=== PATIENT | female | born 1975 | race Caucasian/White ===

== ENCOUNTER 2016-03-17 08:04 | Emergency (ER) | payer MEDICARE, OTHER ==
[~2016-03-17] VITALS: Ht 167.6 cm; Wt 90.0 kg
[~2016-03-17 08:04] MED LIST: CLON-352 PO; CLON.5 PO; GLUCTAB PO; KEPP1000 PO; MOBI15TA PO; PROP20TA3 PO; TOPI200 PO
[2016-03-17 08:10] VITALS: BP 146/85; PULSE 77; RESP 16; TEMP 97.9; O2SAT 98
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
[2016-03-17 08:41] LABS: AUTOMATED NEUTROPHIL # 4.4 TH/MM3 (1.8-7.7); BASOPHIL % 0.4 % (0.0-2.0); HEMATOCRIT 40.1 % (35.0-46.0); HEMO FLAGS DIFF FINAL; LYMPH % 23.6 % (9.0-44.0); LYMPHOCYTE # 1.5 TH/MM3 (1.0-4.8); MEAN CELL VOLUME 83.9 FL (80.0-100.0); MEAN CORPUSCULAR HEMOGLOBIN 27.9 PG (27.0-34.0); MEAN CORPUSCULAR HGB CONC 33.3 % (32.0-36.0); MONO % 5.9 % (0.0-8.0); NEUT % 70.1 % (16.0-70.0); PLATELET COUNT 193 TH/MM3 (150-450); RED BLOOD COUNT 4.78 MIL/MM3 (4.00-5.30); RED CELL DISTRIBUTION WIDTH 13.8 % (11.6-17.2); WHITE BLOOD COUNT 6.2 TH/MM3 (4.0-11.0)
[2016-03-17 08:53] LABS: ANION GAP 8 MEQ/L (5-15); BICARBONATE 23.5 MEQ/L (21.0-32.0); BLOOD UREA NITROGEN 9 MG/DL (7-18); CHLORIDE 110 MEQ/L (98-107); GLOMERULAR FILTRATION RATE 93 ML/MIN (>89); POTASSIUM 4.1 MEQ/L (3.5-5.1); SODIUM (NA) 141 MEQ/L (136-145)
[2016-03-17 11:55] LABS: AMPHETAMINE, URINE NEG (NEG); BARBITURATES, URINE NEG (NEG); COCAINE, URINE NEG (NEG)
[2016-03-17] MEDS ORDERED: LEVE500T8 PO (18:32)
[2016-03-17] MEDS ORDERED: TOPI200T7 PO (18:32)
[2016-03-17] MEDS ORDERED: DIVA500T3 PO ×2 (18:32)
[2016-03-17] MEDS ORDERED: NORE5TAB PO (18:32)
[2016-03-17] MEDS ORDERED: GABA300C5 PO (18:32)
[2016-03-17] MEDS ORDERED: SERT-132 PO (18:32)
[2016-03-17] MEDS ORDERED: BENZ0.5T PO (18:32)
[2016-03-17] MEDS ORDERED: TRAZ100T4 PO (18:32)
[2016-03-17] MEDS ORDERED: OLAN20TA PO (18:32)
[2016-03-17] MEDS ORDERED: METF1000 PO (18:32)
[2016-03-17] MEDS ORDERED: MULT-135 PO (18:32)
[2016-03-17 18:58] VITALS: BP 152/104; PULSE 67; RESP 18; O2SAT 98
[2016-03-17 22:16] VITALS: BP 133/68; TEMP 97.5; O2SAT 98
[2016-03-18 02:12] VITALS: BP 168/85; PULSE 74; RESP 19; O2SAT 99
[2016-03-18 06:11] VITALS: BP 180/86; PULSE 76; RESP 18; TEMP 97.4; O2SAT 96
[2016-03-18] MEDS ORDERED: metFORMIN HCL 500 MG TAB PO ONE (08:15)
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
[2016-03-18 08:47] VITALS: BP 180/86; PULSE 76; RESP 18; O2SAT 96
== END 2016-03-18 11:22 | disposition home or self-care (01) ==
LOC: NEPE 08:04 → NEPJ 03-18 11:22
DX: F25.0 Schizoaffective disorder, bipolar type (principal); E11.9 Type 2 diabetes mellitus without complications; I10 Essential (primary) hypertension
CPT/HCPCS: 80048; 80201; 80307; 80320; 85025; 99283

== ENCOUNTER 2017-10-25 12:10 | Inpatient (IN) ==
[2017-10-25 18:19] LABS: Baso # (Auto) 0.1 th/mm3 (0.0-0.2); Baso % (Auto) 0.8 % (0.0-2.0); Eos # (Auto) 0.2 th/mm3 (0.0-0.4); Eos % (Auto) 1.8 % (0.0-4.0); Hematocrit 36.7 % (35.0-46.0); Hemoglobin 11.9 gm/dL (11.6-15.3); Lymph # (Auto) 1.9 th/mm3 (1.0-4.8); Lymph % (Auto) 19.6 % (9.0-44.0); Mean Corpuscular HGB Conc 32.4 % (32.0-36.0); Mean Corpuscular Hemoglobin 24.3 pg (27.0-34.0); Mean Corpuscular Volume 74.9 fL (80.0-100.0); Mean Platelet Volume 8.7 fL (7.0-11.0); Mono # (Auto) 0.5 th/mm3 (0.0-0.9); Mono % (Auto) 5.1 % (0.0-8.0); Neut # (Auto) 7.1 th/mm3 (1.8-7.7); Neut % (Auto) 72.7 % (16.0-70.0); Platelet Count 290 th/mm3 (150-450); Red Cell Distribution Width 17.4 % (11.6-17.2); White Blood Count 9.8 th/mm3 (4.0-11.0)
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
[2017-10-25 18:26] LABS: Albumin 3.7 g/dL (3.4-5.0); Anion Gap 10 meq/L (5-15); Aspartate Aminotransferase 10 U/L (15-37); Blood Urea Nitrogen 9 mg/dL (7-18); Calcium 8.4 mg/dL (8.5-10.1); Carbon Dioxide 23.8 meq/L (21.0-32.0); Chloride 106 meq/L (98-107); Glomerular Filtration Rate 79 mL/min (>89); Glucose,Random 185 mg/dL (74-106); Potassium 3.5 meq/L (3.5-5.1); Sodium 140 meq/L (136-145)
[2017-10-25 18:27] LABS: Alanine Aminotransferase 19 U/L (10-53)
[2017-10-25 18:37] LABS: Alkaline Phosphatase 82 U/L (45-117); Total Protein 7.8 g/dL (6.4-8.2)
[2017-10-25 19:39] LABS: Bacteria,Urine Moderate /hpf; Bilirubin,Urine Negative (Negative); Clarity,Urine Clear (Clear); Color,Urine Yellow (Yellw/Straw); Glucose,Urine (UA) Negative (Negative); Leukocyte Esterase,Urine Negative (Negative); Nitrite,Urine Negative (Negative); Squamous Epithelial Cell,Urine 1 /hpf (0-5)
[2017-10-25 19:42] LABS: Amphetamine Screen,Urine Neg (Neg); Barbiturate Screen,Urine Neg (Neg); Cannabinoid Screen,Urine Neg (Neg); Cocaine Screen,Urine Neg (Neg)
[2017-10-25 19:54] LABS: Opiate Screen,Urine Neg (Neg)
[2017-10-26] MEDS ORDERED: glipiZIDE 5 MG Tablet PO ONE (06:41)
[2017-10-26] MEDS ORDERED: levETIRAcetam 500 MG Tablet PO ONE (06:41)
[2017-10-26] MEDS ORDERED: Acetaminophen 325 MG Tablet PO PRN (13:23)
[2017-10-26] MEDS ORDERED: Aluminum/Magnesium/Simethacone Susp 30 ML UDC PO PRN (13:23)
[2017-10-26] MEDS ORDERED: Bisacodyl 10 MG Supp RECTAL PRN (13:23)
[2017-10-26] MEDS ORDERED: levETIRAcetam 500 MG Tablet PO SCH (13:30)
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
[2017-10-26] MEDS: Sertraline 100 MG Tablet PO SCH (17:20)
[2017-10-26] MEDS ORDERED: Benztropine Inj 2 MG/2 ML Ampul IM SCH (18:00)
[2017-10-26] MEDS: Gabapentin 400 MG Capsule PO SCH (20:17)
[2017-10-26] MEDS: glipiZIDE 5 MG Tablet PO SCH (20:17)
[2017-10-26] MEDS: Senna/Docusate Sodium 8.6/50 MG Tablet PO SCH (20:17)
[2017-10-26] MEDS: levETIRAcetam 500 MG Tablet PO SCH (20:26)
[2017-10-26] MEDS ORDERED: Non-Formulary Drug (Metformin [Metformin] 1,000 MG) PO SCH (21:00)
[2017-10-26] MEDS ORDERED: traZODone 100 MG Tablet PO SCH (21:00)
[2017-10-26] MEDS ORDERED: Prazosin HCl 1 MG Capsule PO SCH (21:00)
[2017-10-26] MEDS: Topiramate 200 MG Tablet PO SCH (21:22)
[2017-10-27 05:52] VITALS: BP 159/88; PULSE 84; RESP 18; TEMP 97.6; O2SAT 99
[2017-10-27] MEDS: Senna/Docusate Sodium 8.6/50 MG Tablet PO SCH (08:37)
[2017-10-27] MEDS: Gabapentin 400 MG Capsule PO SCH (08:37)
[2017-10-27] MEDS: Sertraline 100 MG Tablet PO SCH (08:37)
[2017-10-27] MEDS: levETIRAcetam 500 MG Tablet PO SCH (08:39)
[2017-10-27] MEDS: glipiZIDE 5 MG Tablet PO SCH (08:40)
[2017-10-27] MEDS: Topiramate 200 MG Tablet PO SCH (08:46)
[2017-10-27 08:53] LABS: Calcium 8.7 mg/dL (8.5-10.1); Carbon Dioxide 21.1 meq/L (21.0-32.0); Potassium 4.1 meq/L (3.5-5.1)
[2017-10-27 08:56] LABS: Chol/HDL Ratio 2.59 Ratio; HDL Cholesterol 62.4 mg/dL (40.0-60.0)
[2017-10-27] MEDS ORDERED: Non-Formulary Drug (Losartan [Losartan] 100 MG) PO SCH (09:00)
[2017-10-27] MEDS ORDERED: Pantoprazole Sodium 20 MG DR Tablet PO SCH (09:00)
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
[2017-10-27 15:51] LABS: Hemoglobin A1c 6.6 % (4.3-6.0)
--- NOTE | 2017-10-27 23:27 | ECG ---
Date Performed: 10/27/2017 Time Performed: 10:53:48 PTAGE: 42 years EKG: Sinus rhythm NORMAL ECG NO PREVIOUS TRACING DOCTOR: Aime Bello Interpretating Date/Time 10/27/2017 23:26:05
== END 2017-10-27 16:25 | disposition home or self-care (01) ==
LOC: NEPJ 12:10 → NEDA 10-26 13:22 → H270 10-26 14:46
PROVIDERS: ADMIT Psychiatry & Neurology Psychiatry; ATTEND Psychiatry & Neurology Psychiatry